=== PATIENT | male | born 1955 | race African-American/Black ===

== ENCOUNTER 2017-04-22 17:12 | Emergency (ER) | payer MEDICARE, MEDICAID ==
[~2017-04-22] VITALS: Ht 177.8 cm; Wt 115.3 kg
[~2017-04-22 17:12] MED LIST: ALPR-624 PO; AZIT250T PO; LORA1TAB PO
[2017-04-22 17:51] LABS: BASOPHILS % (AUTO) 0.8 % (0-1); EOSINOPHILS # (AUTO) 0.1 X10'3 (0-0.9); EOSINOPHILS % (AUTO) 2.3 % (0-6); HEMATOCRIT 46.4 % (42.0-52.0); HEMOGLOBIN 15.3 g/dl (14.0-17.9); LYMPHOCYTES # (AUTO) 0.9 X10'3 (1.1-4.8); LYMPHOCYTES % (AUTO) 19.6 % (21-51); MEAN CORPUSCULAR HEMOGLOBIN 32.8 PG (27.0-31.0); MEAN CORPUSCULAR HGB CONC 32.9 % (33.0-36.5); MEAN CORPUSCULAR VOLUME 99.5 FL (78-98); MEAN PLATELET VOLUME 7.7 FL (7.4-10.4); MONOCYTES # (AUTO) 0.4 X10'3 (0-0.9); MONOCYTES % (AUTO) 8.5 % (2-12); NEUTROPHILS # (AUTO) 3.2 X10'3 (1.8-7.7); NEUTROPHILS % (AUTO) 68.8 % (42-75); PLATELET COUNT 166 X10'3 (140-440); RED BLOOD COUNT 4.66 X10'6 (4.70-6.10); RED CELL DISTRIBUTION WIDTH 13.3 % (11.5-14.5); WHITE BLOOD COUNT 4.6 X10'3 (4.5-11.0)
[2017-04-22 18:01] LABS: INR 1.1 INR; PARTIAL THROMBOPLASTIN TIME 33 SECONDS (22-32); PROTHROMBIN TIME 11.1 SECONDS (9.0-12.0)
[2017-04-22 18:10] LABS: ALANINE AMINOTRANSFERASE 40 U/L (12-78); ALBUMIN 3.5 G/DL (3.4-5.0); ALBUMIN/GLOBULIN RATIO 0.7 (1.1-1.5); ALKALINE PHOSPHATASE 119 IU/L (46-116); ANION GAP 7 (8-16); ASPARTATE AMINO TRANSFERASE 36 U/L (10-37); BILIRUBIN,TOTAL 0.6 MG/DL (0.1-1.0); BLOOD UREA NITROGEN 8 MG/DL (7-18); BUN/CREATININE RATIO 11.9 (5.4-32.0); CHLORIDE 105 MMOL/L (99-107); CREATININE 0.67 MG/DL (0.60-1.10); GLUCOSE 113 MG/DL (70-104); POTASSIUM 4.4 MMOL/L (3.5-5.1); SODIUM 141 MMOL/L (135-145); TOTAL CARBON DIOXIDE 28.8 MMOL/L (24-32); TOTAL PROTEIN 8.2 G/DL (6.4-8.2); eGFR > 90 ML/MIN
[2017-04-22 19:31] VITALS: BP 128/82
== END 2017-04-22 19:44 | disposition home or self-care (01) ==
LOC: ER 17:14
DX: F41.0 Panic disorder [episodic paroxysmal anxiety] (principal); G89.29 Other chronic pain
CPT/HCPCS: 36415; 71020; 80053; 83880; 84484; 85025; 85610; 85730; 93005; 99285

== ENCOUNTER 2017-05-21 17:19 | Emergency (ER) | payer OTHER, MEDICARE, MEDICAID ==
[~2017-05-21] VITALS: Ht 177.8 cm; Wt 111.0 kg
[~2017-05-21 17:19] MED LIST changes: -LORA1TAB PO
[2017-05-21 17:31] VITALS: BP 133/77
[2017-05-21] MEDS ORDERED: ketorolac tromethamine 15mg/ml inj. IM ONE (17:55)
[2017-05-21] MEDS ORDERED: CYCL-1 PO (18:08)
== END 2017-05-21 18:40 | disposition home or self-care (01) ==
LOC: ER 17:19
DX: M54.2 Cervicalgia (principal); M25.512 Pain in left shoulder
CPT/HCPCS: 72040; 73030; 96372; 99284; J1885

== ENCOUNTER 2017-12-01 08:49 | Emergency (ER) | payer MEDICARE, MEDICAID ==
[~2017-12-01] VITALS: Ht 584.7 cm; Wt 115.0 kg
[~2017-12-01 08:49] MED LIST changes: +CYCL-1 PO
[2017-12-01] MEDS ORDERED: normal saline 1000ML IV soln IVB ONE (09:05)
[2017-12-01] MEDS ORDERED: ondansetron/PF 4mg/2ml inj IV ONE (09:05)
[2017-12-01] MEDS ORDERED: morphine 5 MG/ML injection IV ONE ×2 (09:05→10:15)
[2017-12-01] MEDS ORDERED: LORazepam 2 mg/ml vial IV ONE (09:10)
[2017-12-01 09:28] LABS: BASOPHILS # (AUTO) 0.1 X10'3 (0-0.2); BASOPHILS % (AUTO) 0.9 % (0-1); EOSINOPHILS # (AUTO) 0.2 X10'3 (0-0.9); EOSINOPHILS % (AUTO) 3.5 % (0-6); HEMATOCRIT 46.1 % (42.0-52.0); HEMOGLOBIN 14.9 g/dl (14.0-17.9); LYMPHOCYTES # (AUTO) 1.8 X10'3 (1.1-4.8); LYMPHOCYTES % (AUTO) 32.1 % (21-51); MEAN CORPUSCULAR HGB CONC 32.2 % (33.0-36.5); MEAN CORPUSCULAR VOLUME 99.4 FL (78-98); MEAN PLATELET VOLUME 7.8 FL (7.4-10.4); MONOCYTES # (AUTO) 0.5 X10'3 (0-0.9); MONOCYTES % (AUTO) 8.8 % (2-12); NEUTROPHILS % (AUTO) 54.7 % (42-75); PLATELET COUNT 144 X10'3 (140-440); RED BLOOD COUNT 4.64 X10'6 (4.70-6.10); RED CELL DISTRIBUTION WIDTH 12.7 % (11.5-14.5); WHITE BLOOD COUNT 5.6 X10'3 (4.5-11.0)
[2017-12-01 09:43] LABS: ALANINE AMINOTRANSFERASE 31 U/L (12-78); ALBUMIN 3.5 G/DL (3.4-5.0); ALBUMIN/GLOBULIN RATIO 0.8 (1.1-1.5); ALKALINE PHOSPHATASE 105 IU/L (46-116); ANION GAP 11 (8-16); ASPARTATE AMINO TRANSFERASE 23 U/L (10-37); BILIRUBIN,TOTAL 0.4 MG/DL (0.1-1.0); BLOOD UREA NITROGEN 14 MG/DL (7-18); BUN/CREATININE RATIO 15.7 (5.4-32.0); CALCIUM 8.8 MG/DL (8.5-10.1); CHLORIDE 102 MMOL/L (99-107); CREATININE 0.89 MG/DL (0.60-1.10); GLUCOSE 126 MG/DL (70-104); LIPASE 74 U/L (73-393); POTASSIUM 3.4 MMOL/L (3.5-5.1); SODIUM 140 MMOL/L (135-145); TOTAL CARBON DIOXIDE 26.9 MMOL/L (24-32); TOTAL PROTEIN 7.9 G/DL (6.4-8.2); eGFR > 90 ML/MIN
[2017-12-01] MEDS ORDERED: morphine 10mg/ml inj. IV ONE (10:25)
[2017-12-01] MEDS ORDERED: ONDA4TAB12 PO (10:58)
[2017-12-01 12:06] VITALS: BP 141/85
== END 2017-12-01 12:08 | disposition home or self-care (01) ==
LOC: ER 08:50
DX: I44.1 Atrioventricular block, second degree (principal); R10.84 Generalized abdominal pain; G89.29 Other chronic pain; Z90.49 Acquired absence of other specified parts of digestive tract; Z79.899 Other long term (current) drug therapy
CPT/HCPCS: 36415; 71045; 74176; 80053; 83605; 83690; 85025; 93005; 96374; 96375; 99285; J2060; J2270; J2405; J7030

== ENCOUNTER 2018-03-13 12:16 | Emergency (ER) | payer MEDICARE, MEDICAID ==
[~2018-03-13] VITALS: Ht 177.8 cm; Wt 110.0 kg
[~2018-03-13 12:16] MED LIST changes: +ONDA4TAB12 PO
[2018-03-13 12:35] VITALS: BP 114/78
[2018-03-13] MEDS ORDERED: ketorolac trometh inj. 60 MG/2 ML VIAL IM ONE (13:50)
[2018-03-13] MEDS ORDERED: HYDROmorphone 1 mg/ml syringe IM ONE (13:50)
[2018-03-13] MEDS ORDERED: BACL10TA PO (14:05)
[2018-03-13] MEDS ORDERED: OXYC30TA88 PO (14:05)
[2018-03-14] MEDS ORDERED: DICL50TA8 PO (13:58)
== END 2018-03-13 14:20 | disposition home or self-care (01) ==
LOC: ER 12:16
DX: G89.29 Other chronic pain (principal); M54.5 Low back pain; F12.90 Cannabis use, unspecified, uncomplicated; Z90.49 Acquired absence of other specified parts of digestive tract; Z98.890 Other specified postprocedural states; Z79.899 Other long term (current) drug therapy
CPT/HCPCS: 96372; 99283; J1170; J1885

== ENCOUNTER → 2018-03-14 | Emergency (ER) | payer MEDICARE, MEDICAID ==
[~2018-03-14] VITALS: Ht 180.3 cm; Wt 110.5 kg
[~2018-03-14] MED LIST changes: +BACL10TA PO; +DICL50TA8 PO; +HYDROmorphone 1 mg/ml syringe IM ONE; +OXYC30TA88 PO; +ketorolac trometh inj. 60 MG/2 ML VIAL IM ONE
[2018-03-14 12:35] VITALS: BP 119/66
== END | disposition home or self-care (01) ==
LOC: ER 12:18
DX: M54.5 Low back pain (principal); G89.29 Other chronic pain; F12.90 Cannabis use, unspecified, uncomplicated; Z90.49 Acquired absence of other specified parts of digestive tract; Z98.890 Other specified postprocedural states
CPT/HCPCS: 96372; 99283; J1170; J1885

== ENCOUNTER 2018-03-17 17:04 | Emergency (ER) | payer MEDICARE, MEDICAID ==
[~2018-03-17] VITALS: Ht 177.8 cm; Wt 110.4 kg
[~2018-03-17 17:04] MED LIST changes: -HYDROmorphone 1 mg/ml syringe IM ONE; -ketorolac trometh inj. 60 MG/2 ML VIAL IM ONE
[2018-03-17 17:30] VITALS: BP 136/83
[2018-03-17] MEDS ORDERED: HYDROmorphone 1 mg/ml syringe IM ONE (18:50)
[2018-03-17] MEDS ORDERED: ORPH100T2 PO (18:50)
[2018-03-17] MEDS ORDERED: orphenadrine citrate 60mg/2ml inj. IM ONE (18:50)
[2018-03-17] MEDS ORDERED: ketorolac trometh inj. 60 MG/2 ML VIAL IM ONE (18:50)
== END 2018-03-17 19:19 | disposition home or self-care (01) ==
LOC: ER 17:04
DX: G89.29 Other chronic pain (principal); M54.5 Low back pain; F12.90 Cannabis use, unspecified, uncomplicated; Z90.49 Acquired absence of other specified parts of digestive tract; Z98.890 Other specified postprocedural states; Z79.2 Long term (current) use of antibiotics; Z79.899 Other long term (current) drug therapy
CPT/HCPCS: 96372; 99283; J1170; J1885; J2360

== ENCOUNTER 2018-03-19 15:59 | Emergency (ER) | payer MEDICARE, MEDICAID ==
[~2018-03-19] VITALS: Ht 179.1 cm; Wt 110.5 kg
[~2018-03-19 15:59] MED LIST changes: +ORPH100T2 PO
[2018-03-19 16:15] VITALS: BP 123/76
[2018-03-19] MEDS ORDERED: ketorolac tromethamine 15mg/ml inj. IM ONE (17:35)
[2018-03-19] MEDS ORDERED: METH-360 PO (17:41)
== END 2018-03-19 17:59 | disposition home or self-care (01) ==
LOC: ER 16:00
DX: G89.29 Other chronic pain (principal); M54.9 Dorsalgia, unspecified; M54.2 Cervicalgia; F12.90 Cannabis use, unspecified, uncomplicated; Z90.49 Acquired absence of other specified parts of digestive tract; Z98.890 Other specified postprocedural states; Z79.2 Long term (current) use of antibiotics; Z79.899 Other long term (current) drug therapy
CPT/HCPCS: 96372; 99283; J1885

== ENCOUNTER 2018-04-01 20:58 | Emergency (ER) | payer MEDICARE, MEDICAID ==
[~2018-04-01] VITALS: Ht 177.8 cm; Wt 111.0 kg
[~2018-04-01 20:58] MED LIST changes: +METH-360 PO; +MORP60TA66 PO; +ONDA4TAB9 SL
[2018-04-01 21:05] VITALS: BP 170/89
[2018-04-01] MEDS ORDERED: ketorolac trometh inj. 60 MG/2 ML VIAL IM ONE (21:40)
[2018-04-01] MEDS ORDERED: HYDROcodone/acetaminophen 10/325mg tab PO ONE (21:40)
== END 2018-04-01 22:02 | disposition home or self-care (01) ==
LOC: ER 20:59
DX: G89.29 Other chronic pain (principal); M54.2 Cervicalgia; M54.5 Low back pain; F12.90 Cannabis use, unspecified, uncomplicated; Z90.49 Acquired absence of other specified parts of digestive tract; Z98.890 Other specified postprocedural states; Z79.899 Other long term (current) drug therapy
CPT/HCPCS: 96372; 99283; J1885

== ENCOUNTER 2018-04-03 13:58 | Emergency (ER) | payer MEDICARE, MEDICAID ==
[~2018-04-03] VITALS: Ht 177.8 cm; Wt 110.0 kg
[2018-04-03 14:15] VITALS: BP 127/82
[2018-04-03] MEDS ORDERED: HYDROcodone/acetaminophen 10/325mg tab PO ONE (15:10)
[2018-04-03] MEDS ORDERED: diazepam 5mg tablet PO ONE (15:10)
[2018-04-03] MEDS ORDERED: ketorolac trometh inj. 60 MG/2 ML VIAL IM ONE (15:10)
== END 2018-04-03 15:38 | disposition home or self-care (01) ==
LOC: ER 13:59
DX: G89.29 Other chronic pain (principal); M54.42 Lumbago with sciatica, left side; F12.90 Cannabis use, unspecified, uncomplicated; Z90.49 Acquired absence of other specified parts of digestive tract; Z98.890 Other specified postprocedural states
CPT/HCPCS: 96372; 99283; J1885

== ENCOUNTER 2018-04-04 16:23 | Emergency (ER) | payer MEDICARE, MEDICAID ==
[~2018-04-04] VITALS: Ht 177.8 cm; Wt 110.9 kg
[2018-04-04 16:40] VITALS: BP 128/70
[2018-04-04] MEDS ORDERED: diazepam 5mg tablet PO ONE (17:40)
[2018-04-04] MEDS ORDERED: HYDROcodone/acetaminophen 10/325mg tab PO ONE (17:40)
== END 2018-04-04 18:10 | disposition home or self-care (01) ==
LOC: ER 16:24
DX: M54.5 Low back pain (principal); G89.29 Other chronic pain; F41.9 Anxiety disorder, unspecified; F12.10 Cannabis abuse, uncomplicated; Z90.49 Acquired absence of other specified parts of digestive tract; Z79.899 Other long term (current) drug therapy
CPT/HCPCS: 99283

== ENCOUNTER 2018-04-14 15:41 | Emergency (ER) | payer MEDICARE, MEDICAID ==
[~2018-04-14] VITALS: Ht 177.8 cm; Wt 110.0 kg
[2018-04-14 16:08] VITALS: BP 127/85
[2018-04-14] MEDS ORDERED: IBUP-1984 PO (16:47)
[2018-04-14] MEDS ORDERED: ketorolac trometh. 30mg/ml inj. IM ONE (16:50)
== END 2018-04-14 17:09 | disposition home or self-care (01) ==
LOC: ER 15:42
DX: M54.2 Cervicalgia (principal); G89.29 Other chronic pain; F12.90 Cannabis use, unspecified, uncomplicated; Z90.49 Acquired absence of other specified parts of digestive tract; Z98.890 Other specified postprocedural states; Z79.2 Long term (current) use of antibiotics; Z79.899 Other long term (current) drug therapy
CPT/HCPCS: 96372; 99284; J1885